=== PATIENT | male | born 1990 | race Asian ===

== ENCOUNTER 2017-09-25 18:31 | Emergency (ER) | payer OTHER ==
[~2017-09-25] VITALS: Ht 175.3 cm; Wt 69.1 kg
[2017-09-25 18:41] VITALS: BP 145/98
[2017-09-25] MEDS ORDERED: [UNRECOGNIZED DRUG - REMARK] PO (18:46)
[2017-09-25 19:29] LABS: BASOPHILS # (AUTO) 0.01 K/uL (0.00-0.20); BASOPHILS % (AUTO) 0.2 % (0.0-2.0); EOSINOPHILS # (AUTO) 0.13 K/uL (0.00-0.70); EOSINOPHILS % (AUTO) 3.75 % (1.0-6.0); HEMATOCRIT 43.6 % (41-53); HEMOGLOBIN 14.4 g/dL (13.5-17.5); LYMPHOCYTES # (AUTO) 0.6 K/uL (1.0-4.8); LYMPHOCYTES % (AUTO) 16.9 % (22.0-44.0); MEAN CORPUSCULAR VOLUME 103 fL (80-100); MONOCYTES # (AUTO) 0.3 K/uL (0.1-1.0); MONOCYTES % (AUTO) 8.4 % (2.0-9.0); NEUTROPHILS # (AUTO) 2.5 K/uL (1.8-7.7); NEUTROPHILS % (AUTO) 70.8 % (40.0-70.0); PLATELET COUNT (AUTO) 174 K/uL (150-450); RED BLOOD CELL COUNT(AUTO) 4.24 MIL/uL (4.50-5.90); RED CELL DISTRIBUTION WIDTH 12.9 % (11.5-14.5); WHITE BLOOD COUNT (AUTO) 3.5 K/uL (4.5-11.0)
[2017-09-25 19:33] LABS: ANION GAP 9 mmol/L (8-16); CALCIUM, TOTAL 8.9 mg/dL (8.8-10.5); CARBON DIOXIDE 29 mmol/L (22-29); CHLORIDE 102 mmol/L (98-107); CREATININE 0.89 mg/dL (0.60-1.30); GLOMERULAR FILTR. RATE CALC > 60 mL/min (>60); POTASSIUM 3.2 mmol/L (3.5-5.1); SODIUM SERUM 140 mmol/L (136-145); UREA NITROGEN, BLOOD 8 mg/dL (7-18)
[2017-09-25 19:40] LABS: ALANINE AMINOTRANSFERASE 79 U/L (12-78); ALBUMIN 3.6 g/dL (3.4-5.0); ASPARTATE AMINOTRANSFERASE 76 U/L (15-37); BILIRUBIN,TOTAL 0.9 mg/dL (0.1-1.0); TOTAL PROTEIN, SERUM 8.4 g/dL (6.4-8.2)
[2017-09-25] MEDS ORDERED: LORazepam 1 MG TABLET PO ONE (20:15)
[2017-09-25 21:20] LABS: RBC MORPHOLOGY COMMENT ABNORMAL RBC MORPH
== END 2017-09-25 20:28 | disposition home or self-care (01) ==
LOC: EMS 18:33
DX: F32.9 Major depressive disorder, single episode, unspecified (principal); F41.9 Anxiety disorder, unspecified
CPT/HCPCS: 36415; 80053; 85025; 99284; G0480

== ENCOUNTER 2020-03-23 00:30 | Inpatient (IN) | payer MEDICAID ==
[~2020-03-23] VITALS: Ht 172.7 cm; Wt 88.2 kg
[~2020-03-23 00:30] MED LIST: [UNRECOGNIZED DRUG - REMARK] PO
[2020-03-23 02:30] VITALS: BP 128/78
[2020-03-23] MEDS ORDERED: LORazepam 1 MG TABLET PO PRN (02:45)
[2020-03-23 04:55] VITALS: BP 132/93
[2020-03-23] MEDS: QUEtiapine FUMARATE 100 MG TABLET PO SCH ×2 (08:13→17:00)
[2020-03-23] MEDS ORDERED: ACETAMINOPHEN 325 MG TABLET PO PRN (08:15)
[2020-03-23] MEDS ORDERED: IBUPROFEN 400 MG TABLET PO PRN (08:15)
[2020-03-23] MEDS ORDERED: MAGNESIUM HYDROXIDE SUSPENSION 30 ML UDCUP PO PRN (08:15)
[2020-03-23] MEDS ORDERED: LOPERAMIDE HCL 2 MG CAPSULE PO PRN (08:15)
[2020-03-23] MEDS ORDERED: GuaiFENesin/D-METHORPHAN [SUGAR-FREE] 200-20MG/10 ML SYRUP UDCUP PO PRN (08:15)
[2020-03-23] MEDS ORDERED: MAG HYDROX/AL HYDROX/SIMETH ES 30 ML SUSPENSION UDCUP PO PRN (08:15)
[2020-03-23] MEDS ORDERED: NICOTINE 14 MG/24 HOUR PATCH TD PRN (08:15)
[2020-03-23] MEDS ORDERED: ONDANSETRON HCL 4 MG TABLET PO PRN (08:15)
[2020-03-23] MEDS ORDERED: DOCUSATE SODIUM 100 MG CAPSULE PO PRN (08:15)
[2020-03-23] MEDS ORDERED: ALBUTEROL SULFATE HFA 90 MCG/PUFF 8 GM INHALER IH PRN (08:15)
[2020-03-23] MEDS ORDERED: CloNIDine HCL 0.1 MG TABLET PO PRN (08:15)
[2020-03-23] MEDS ORDERED: PETROLATUM,WHITE 28 GM JELLY TP PRN (08:15)
[2020-03-23] MEDS ORDERED: DARU1TAB3 PO (09:10)
[2020-03-23] MEDS ORDERED: ATOV5L PO (09:11)
[2020-03-23] MEDS ORDERED: MIRT-89 PO (09:13)
[2020-03-23] MEDS ORDERED: QUET100T PO (09:13)
[2020-03-23 09:32] VITALS: BP 146/96
[2020-03-23 16:23] VITALS: BP 134/89
[2020-03-23] MEDS ORDERED: [UNRECOGNIZED DRUG - OTHER] PO SCH (16:30)
[2020-03-23] MEDS: MIRTAZAPINE 15 MG TABLET PO SCH (20:34)
[2020-03-24 01:28] VITALS: BP 131/87
[2020-03-24 07:48] LABS: BASOPHILS % (AUTO) 0.4 % (0.0-2.0); EOSINOPHILS % (AUTO) 6.8 % (1.0-6.0); HEMATOCRIT 45.8 % (41-53); HEMOGLOBIN 15.6 g/dL (13.5-17.5); LYMPHOCYTES # (AUTO) 1.5 K/uL (1.0-4.8); LYMPHOCYTES % (AUTO) 32.8 % (22.0-44.0); MEAN CORPUSCULAR HEMOGLOBIN 34.2 pg (26.0-34.0); MEAN CORPUSCULAR HGB CONC 34.1 G/dL (31.0-37.0); MEAN CORPUSCULAR VOLUME 100 fL (80-100); MONOCYTES # (AUTO) 0.4 K/uL (0.1-1.0); MONOCYTES % (AUTO) 9.1 % (2.0-9.0); NEUTROPHILS # (AUTO) 2.3 K/uL (1.8-7.7); NEUTROPHILS % (AUTO) 50.9 % (40.0-70.0); PLATELET COUNT (AUTO) 276 K/uL (150-450); RED BLOOD CELL COUNT(AUTO) 4.57 MIL/uL (4.50-5.90); RED CELL DISTRIBUTION WIDTH 12.3 % (11.5-14.5)
[2020-03-24 07:52] LABS: ALANINE AMINOTRANSFERASE 102 U/L (12-78); ALBUMIN 4.4 g/dL (3.4-5.0); ALKALINE PHOSPHATASE 75 U/L (46-116); ANION GAP 13 mmol/L (8-16); ASPARTATE AMINOTRANSFERASE 34 U/L (15-37); BILIRUBIN,TOTAL 0.5 mg/dL (0.1-1.0); CALCIUM, TOTAL 9.2 mg/dL (8.8-10.5); CARBON DIOXIDE 21 mmol/L (22-29); CHLORIDE 105 mmol/L (98-107); CHOL/HDL RATIO 4.5 (4.2-7.3); CHOLESTEROL 161 mg/dL (131-200); CREATININE 0.72 mg/dL (0.60-1.30); GLOMERULAR FILTR. RATE CALC > 60 mL/min (>60); GLUCOSE,RANDOM 109 mg/dL (70-110); HDL CHOLESTEROL 36 mg/dL (40-60); LDL CHOL (CALC.) 104 mg/dL (0-130); POTASSIUM 4.1 mmol/L (3.5-5.1); SODIUM SERUM 139 mmol/L (136-145); TOTAL PROTEIN, SERUM 8.7 g/dL (6.4-8.2); TRIGLYCERIDES 103 mg/dL (15-150); UREA NITROGEN, BLOOD 13 mg/dL (7-18)
[2020-03-24 08:24] VITALS: BP 126/70
[2020-03-24] MEDS: QUEtiapine FUMARATE 100 MG TABLET PO SCH ×2 (08:57→17:59)
[2020-03-24 16:19] VITALS: BP 119/81
[2020-03-24] MEDS: MIRTAZAPINE 15 MG TABLET PO SCH (20:56)
[2020-03-25 06:30] VITALS: BP 118/68
[2020-03-25 08:50] LABS: APPEARANCE,URINE CLOUDY (CLEAR); BILIRUBIN,URINE NEGATIVE (NEGATIVE); GLUCOSE, URINE (UA) NEGATIVE (NEGATIVE); KETONES,URINE NEGATIVE (NEGATIVE); LEUKOCYTE ESTERASE ,URINE NEGATIVE (NEGATIVE); NITRATE,URINE NEGATIVE (NEGATIVE); OCCULT BLOOD,URINE NEGATIVE (NEGATIVE); PROTEIN,URINE NEGATIVE (NEGATIVE); UROBILINOGEN,URINE 0.2 mg/dL (<=1.0)
[2020-03-25 08:51] VITALS: BP 120/73
[2020-03-25] MEDS: QUEtiapine FUMARATE 100 MG TABLET PO SCH ×2 (09:27→17:39)
[2020-03-25 09:31] LABS: AMPHET/METH SCREEN,URINE NEGATIVE (NEGATIVE); BARBITURATE SCREEN, URINE NEGATIVE (NEGATIVE); BENZODIAZEPINES SCREEN,URINE NEGATIVE (NEGATIVE); CANNABINOID SCREEN,URINE NEGATIVE (NEGATIVE); COCAINE SCREEN,URINE NEGATIVE (NEGATIVE); METHADONE SCREEN, URINE NEGATIVE (NEGATIVE); OPIATE SCREEN,URINE NEGATIVE (NEGATIVE)
[2020-03-25 09:37] LABS: PHENCYCLIDINE SCREEN,URINE NEGATIVE (NEGATIVE)
[2020-03-25 16:00] VITALS: BP 117/75
[2020-03-25] MEDS: MIRTAZAPINE 15 MG TABLET PO SCH (20:37)
[2020-03-26 01:17] VITALS: BP 113/63
[2020-03-26] MEDS: LORazepam 2 MG TABLET PO PRN (01:42)
[2020-03-26 08:17] VITALS: BP 128/91
[2020-03-26] MEDS: QUEtiapine FUMARATE 100 MG TABLET PO SCH ×2 (08:57→17:08)
[2020-03-26 16:16] VITALS: BP 125/80
[2020-03-26] MEDS: MIRTAZAPINE 15 MG TABLET PO SCH (20:39)
[2020-03-27] MEDS: LORazepam 2 MG TABLET PO PRN (00:50)
[2020-03-27 02:36] VITALS: BP 119/86
[2020-03-27] MEDS: QUEtiapine FUMARATE 100 MG TABLET PO SCH ×2 (08:24→17:12)
[2020-03-27 16:20] VITALS: BP 136/64
[2020-03-27] MEDS: MIRTAZAPINE 15 MG TABLET PO SCH (20:40)
[2020-03-28 06:25] VITALS: BP 108/73
[2020-03-28 08:20] VITALS: BP 115/68
[2020-03-28] MEDS: QUEtiapine FUMARATE 100 MG TABLET PO SCH (08:36)
[2020-03-28 16:09] VITALS: BP 125/86
[2020-03-28] MEDS: QUEtiapine FUMARATE 200 MG TABLET PO SCH (17:04)
[2020-03-28] MEDS: MIRTAZAPINE 15 MG TABLET PO SCH (20:17)
[2020-03-29 01:42] VITALS: BP 110/69
[2020-03-29] MEDS: QUEtiapine FUMARATE 200 MG TABLET PO SCH ×2 (08:34→17:10)
[2020-03-29 10:20] VITALS: BP 111/72
[2020-03-29] MEDS: MIRTAZAPINE 15 MG TABLET PO SCH (20:05)
[2020-03-30 00:30] VITALS: BP 131/90
[2020-03-30] MEDS: LORazepam 2 MG TABLET PO PRN (00:32)
[2020-03-30] MEDS: QUEtiapine FUMARATE 200 MG TABLET PO SCH ×2 (08:08→17:08)
[2020-03-30 09:43] VITALS: BP 124/88
[2020-03-30 16:39] VITALS: BP 125/85
[2020-03-30] MEDS: MIRTAZAPINE 15 MG TABLET PO SCH (20:23)
[2020-03-31 00:20] VITALS: BP 126/78
[2020-03-31 08:15] VITALS: BP 124/91
[2020-03-31] MEDS: QUEtiapine FUMARATE 200 MG TABLET PO SCH (08:34)
[2020-03-31] MEDS ORDERED: MIRT-89 PO (12:23)
[2020-03-31] MEDS ORDERED: QUET200T PO (12:23)
== END 2020-03-31 13:05 | disposition home or self-care (01) | DRG 750 ==
LOC: B2S 03:47
PROVIDERS: ADMIT Psychiatry & Neurology Psychiatry; ATTEND Psychiatry & Neurology Psychiatry
DX: F25.1 Schizoaffective disorder, depressive type (principal); R45.851 Suicidal ideations; F32.9 Major depressive disorder, single episode, unspecified; F10.10 Alcohol abuse, uncomplicated; F19.10 Other psychoactive substance abuse, uncomplicated; Z88.1 Allergy status to other antibiotic agents; Z88.0 Allergy status to penicillin; Z88.2 Allergy status to sulfonamides; Z88.8 Allergy status to other drugs, medicaments and biological substances
CPT/HCPCS: 80307; 83036; 86361